=== PATIENT | male | born 1960 | race Two or more races ===

== ENCOUNTER 2017-09-07 13:21 | Emergency (ER) | payer SELFPAY ==
[~2017-09-07] VITALS: Ht 165.1 cm; Wt 79.4 kg
[2017-09-07] MEDS ORDERED: METFORMIN HCL500 M1 ORAL (13:42)
[2017-09-07 14:39] LABS: BASOPHILS % (AUTO) 0.9 % (0.0-2.0); EOSINOPHILS % (AUTO) 1.3 % (0.0-3.0); HEMATOCRIT 49.8 % (42.0-52.0); HEMOGLOBIN 16.8 G/DL (14.2-18.0); LYMPHOCYTES % (AUTO) 16.2 % (20.0-45.0); MEAN CORPUSCULAR VOLUME 91 FL (80-99); MONOCYTES % (AUTO) 8.2 % (1.0-10.0); NEUTROPHILS % (AUTO) 73.4 % (45.0-75.0); PLATELET COUNT 206 K/UL (150-450); RED BLOOD COUNT 5.49 M/UL (4.70-6.10); RED CELL DISTRIBUTION WIDTH 10.9 % (11.6-14.8)
[2017-09-07 14:44] LABS: APPEARANCE,URINE CLEAR; BILIRUBIN, URINE NEGATIVE (NEGATIVE); COLOR,URINE PALE YELLOW; GLUCOSE, URINE (UA) 4+ (NEGATIVE); KETONES,URINE NEGATIVE (NEGATIVE); LEUKOCYTE ESTERASE ,URINE 2+ (NEGATIVE); NITRITE,URINE NEGATIVE (NEGATIVE); PH,URINE 5 (4.5-8.0); PROTEIN,URINE NEGATIVE (NEGATIVE); UROBILINOGEN,URINE NORMAL MG/DL (0.0-1.0)
[2017-09-07 14:59] LABS: ANION GAP 10 mmol/L (5-15); BLOOD UREA NITROGEN 15 mg/dL (7-18); CALCIUM 8.5 MG/DL (8.5-10.1); CARBON DIOXIDE 28 MMOL/L (21-32); CHLORIDE 99 MMOL/L (98-107); SODIUM 136 MMOL/L (136-145)
[2017-09-07 15:04] LABS: ALANINE AMINOTRANSFERASE 26 U/L (12-78); ALBUMIN 3.9 G/DL (3.4-5.0); ALBUMIN/GLOBULIN RATIO 0.8 (1.0-2.7); ALKALINE PHOSPHATASE 99 U/L (46-116); ASPARTATE AMINO TRANSFERASE 16 U/L (15-37); BILIRUBIN,TOTAL 0.7 MG/DL (0.2-1.0)
[2017-09-07 16:04] VITALS: BP 171/91
[2017-09-07] MEDS ORDERED: Piperacillin/Tazobactam 3.375 GM in NS 55 ML IVPB ONE (16:15)
[2017-09-07] MEDS ORDERED: Zosyn 3.375gm inj ONE (16:20)
[2017-09-07] MEDS ORDERED: Morphine Sulfate 4mg/ml Inj IVP ONE (16:30)
[2017-09-07] MEDS ORDERED: Lidocaine 1% 10mg/ml/Epi 0.005mg/ml 30ml vial INJ ONE (18:15)
[2017-09-07] MEDS ORDERED: KEFLEX500 MG ORAL (19:04)
[2017-09-07] MEDS ORDERED: BACTRIM DS TAB1 EAC1 ORAL (19:04)
[2017-09-07] MEDS ORDERED: NORCO 5-325 TA1 EACH ORAL (19:04)
--- NOTE | 2017-09-07 19:11 | Consultation ---
History of Present Illness General Date patient seen: Sep 07, 2017 Chief Complaint: General Complaint Reason for Consultation: perirectal abscess Present Illness HPI 57M with pmhx of DM/dyslipidemia presented with 2-3 day history of perirectal pain. States he was well until noted small discomfort around right perirectal area. over the subsequent days worsened. went to PCP today who evaluated patient and recommended he come to ED. subjective fevers for 1-2 days. no drainage. otherwise well. no n/v. BM's normal. in ED had CT which demonstrated 2x2 cm perirectal abscess. surgery called to evaluate. Allergies: Coded Allergies: No Known Allergies (Unverified , 09/07/17) Medication History Scheduled Cephalexin* (Keflex*), 500 MG ORAL Q6H Metformin Hcl* (Metformin Hcl*), 500 MG ORAL DAILY, (Reported) Trimethoprim/Sulfamethoxazole 160/800* (Bactrim Ds Tablet*), 1 TAB ORAL Q12H Scheduled PRN Hydrocodone Bit/Acetaminophen 5-325* ([place] 5-325*), 1 TAB ORAL Q6H PRN for For Pain Patient History History Provided By: Patient Healthcare decision maker Resuscitation status Advanced Directive on File Past Medical/Surgical History Past Medical/Surgical History: (1) Perirectal abscess Review of Systems Constitutional: Denies: no symptoms, see HPI, chills, sweats, fever, malaise, weakness, other Eye: Denies: no symptoms, see HPI, eye pain, blurred vision, tearing, double vision, nose pain, nose congestion, acuity changes, discharge, other ENT: Denies: no symptoms, see HPI, ear pain, ear discharge, nose pain, nose congestion, throat pain, throat swelling, mouth pain, hearing loss, nasal discharge, other Respiratory: Denies: no symptoms, see HPI, cough, orthopnea, shortness of breath, stridor, wheezing, LEON, sputum, other Cardiovascular: Denies: no symptoms, see HPI, chest pain, edema, palpitations, syncope, PND, other Gastrointestinal: Denies: no symptoms, see HPI, abdominal pain, constipation, diarrhea, nausea, vomiting, melena, hematemesis, other Genitourinary: Reports: other - perirectal pain , Denies: no symptoms, see HPI , discharge, dysuria, frequency, hematuria, pain, retention, incontinence, urgency, vag bleed/dc Musculoskeletal: Denies: no symptoms, see HPI, back pain, gout, joint pain, joint swelling, muscle pain, muscle stiffness, other Skin: Denies: no symptoms, see HPI, rash, change in color, change in hair/nails , dryness, lesions, other Psychiatric: Denies: no symptoms, see HPI, prior hx, anxiety, depressed feelings, emotional problems, SI, HI, hallucinations, other Neurological: Denies: no symptoms, see HPI, headache, numbness, paresthesia, seizure, tingling, tremors, focal weakness, syncope, dizziness, other Endocrine: Denies: no symptoms, see HPI, excessive sweating, flushing, intolerance to temperature, increased thirst, increased urine, unexplained weight loss, other Hematologic/Lymphatic: Denies: no symptoms, see HPI, anemia, blood clots, easy bleeding, easy bruising, swollen glands, diathesis, other All Other Systems: negative except mentioned in HPI Physical Exam General Appearance: WD/WN, no apparent distress, alert Lines, tubes and drains: peripheral HEENT: normocephalic, mucous membranes moist, PERRL Neck: supple, normal inspection Respiratory/Chest: lungs clear, normal breath sounds, no respiratory distress, no accessory muscle use Cardiovascular/Chest: normal peripheral pulses, normal rate Abdomen: normal bowel sounds, non tender, soft, no organomegaly, no mass Genitourinary/Rectal: other - firm right perirectal abscess 1cm from sphincter with induration, erythema, edema, tenderness. no drainage, no tract. LIO nml. Extremities: normal inspection Skin Exam: normal pigmentation Neurologic: alert, oriented x 3 Last 24 Hour Vital Signs Date Time Temp Pulse Resp B/P (MAP) Pulse Ox O2 Delivery O2 Flow Rate FiO2 09/07/17 16:04 99.8 108 18 171/91 97 Room Air 09/07/17 13:38 99.0 99 17 155/97 98 Room Air Laboratory Tests Test 09/07/17 14:18 White Blood Count 12.0 K/UL (4.8-10.8) H Red Blood Count 5.49 M/UL (4.70-6.10) Hemoglobin 16.8 G/DL (14.2-18.0) Hematocrit 49.8 % (42.0-52.0) Mean Corpuscular Volume 91 FL (80-99) Mean Corpuscular Hemoglobin 30.6 PG (27.0-31.0) Mean Corpuscular Hemoglobin Concent 33.7 G/DL (32.0-36.0) Red Cell Distribution Width 10.9 % (11.6-14.8) L Platelet Count 206 K/UL (150-450) Mean Platelet Volume 10.5 FL (6.5-10.1) H Neutrophils (%) (Auto) 73.4 % (45.0-75.0) Lymphocytes (%) (Auto) 16.2 % (20.0-45.0) L Monocytes (%) (Auto) 8.2 % (1.0-10.0) Eosinophils (%) (Auto) 1.3 % (0.0-3.0) Basophils (%) (Auto) 0.9 % (0.0-2.0) Urine Color Pale yellow Urine Appearance Clear Urine pH 5 (4.5-8.0) Urine Specific [place] 1.015 (1.005-1.035) Urine Protein Negative (NEGATIVE) Urine Glucose (UA) 4+ (NEGATIVE) H Urine Ketones Negative (NEGATIVE) Urine Occult Blood Negative (NEGATIVE) Urine Nitrite Negative (NEGATIVE) Urine Bilirubin Negative (NEGATIVE) Urine Urobilinogen Normal MG/DL (0.0-1.0) Urine Leukocyte Esterase 2+ (NEGATIVE) H Urine RBC 0-2 /HPF (0 - 0) H Urine WBC 2-4 /HPF (0 - 0) Urine Squamous Epithelial Cells Occasional /LPF Urine Bacteria Occasional /HPF (NONE) Sodium Level 136 MMOL/L (136-145) Potassium Level 4.0 MMOL/L (3.5-5.1) Chloride Level 99 MMOL/L (98-107) Carbon Dioxide Level 28 MMOL/L (21-32) Anion Gap 10 mmol/L (5-15) Blood Urea Nitrogen 15 mg/dL (7-18) Creatinine 1.0 MG/DL (0.55-1.30) Estimat Glomerular Filtration Rate > 60 mL/min (>60) Glucose Level 276 MG/DL (74-106) H Calcium Level 8.5 MG/DL (8.5-10.1) Magnesium Level 2.1 MG/DL (1.8-2.4) Total Bilirubin 0.7 MG/DL (0.2-1.0) Aspartate Amino Transf (AST/SGOT) 16 U/L (15-37) Alanine Aminotransferase (ALT/SGPT) 26 U/L (12-78) Alkaline Phosphatase 99 U/L (46-116) Total Protein 8.7 G/DL (6.4-8.2) H Albumin 3.9 G/DL (3.4-5.0) Globulin 4.8 g/dL Albumin/Globulin Ratio 0.8 (1.0-2.7) L Acetone Level Negative (NEGATIVE) Height (Feet): 5 Height (Inches): 5.00 Weight (Pounds): 175 Assessment/Plan Problem List: (1) Perirectal abscess Assessment & Plan: 57M with perirectal abscess. low grade fevers, HD stable, leukocytosis of 12k, elevated glucose, CT scan with 2x2x1.5 abscess. -recommend I&D which will be done at bedside today -packing and dressings until healed -can d/c after I&D with oral abx and pain meds -follow up with me this Saturday in office for wound check. office info given to patient. ICD Codes: K61.1 - Rectal abscess SNOMED: [id number] Status: stable MaximilianopeePatrick Sep 07, 2017 19:11
--- NOTE | 2017-09-07 19:16 | Operative Note - PDOC ---
Operative Note Operative Note Date of Operation/Procedure: Sep 07, 2017 Pre-op Diagnosis: right perirectal abscess 2cm x 2cm x 1.5cm Procedure: incision and drainage of right perirectal abscess Operative Findings: consistent w/pre-op dx studies Surgeon: bryanna Anesthesia: local - 1%lido with epi Specimen: yes - culture Complications: none Condition: stable Fluids: n/a Estimated Blood Loss: minimal Drains: none Packing: wet to dry gauze packing with dressings Implant(s) used?: No Indications for Procedure 57M perirectal abscess. I&D indicated. see consult note. risks, benefits, and alternatives discussed in detail. consent obtained. Description of Procedure patient made comfortable at bedside. perirectal area prepped and draped in standard surgical fashion. 1%lido with epi used for local anesthetic; approx 15 -20cc. 2cm incision made distal to anus over area of induration. abscess cavity located with blunt dissection and 5-10cc pus evacuated. sample sent for culture. wound irrigated with copious sterile saline. good hemostasis noted. wound packed with gauze and dressings applied. patient tolerated procedure well. to change packing and dressings BID and prn after each BM and shower. patient states that will be able to assist. Rx as written. follow up this Wed for wound check. Patrick Corona Sep 07, 2017 19:16
[2017-09-07 19:35] VITALS: BP 171/91
--- NOTE | 2017-09-07 21:29 | Emergency Room Report ---
History of Present Illness General Chief Complaint: General Complaint Source: Patient Present Illness HPI The patient is a 57-year-old male with a history of diabetes presenting for multiple complaints including high blood sugar and possible perianal abscess. He was seen by his primary doctor today who told him to come to the emergency department. He states that he usually takes metformin once a day and his blood sugar has been controlled well. Blood sugar taken at the primary care office was 412. He states he has been taking his medication as directed. He is also complaining of pain around the anus described as a 7/10 dull ache. Worse with sitting down. This has been ongoing for 3 days. He also admits to subjective fever and chills. He denies any discharge from the area. He denies any other symptoms including N, V, CP, SOB, rash, diarrhea, constipation, dysuria, abd pain, back pain, dizziness, SOB Allergies: Coded Allergies: No Known Allergies (Unverified , 09/07/17) Patient History Past Medical History: see triage record, DM Pertinent Family History: none Reviewed Nursing Documentation: PMH: Agreed, PSxH: Agreed Nursing Documentation-PMH Hx Diabetes: Yes - DM2 Review of Systems All Other Systems: negative except mentioned in HPI Physical Exam Vital Signs Date Time Temp Pulse Resp B/P (MAP) Pulse Ox O2 Delivery O2 Flow Rate FiO2 09/07/17 13:38 99.0 99 17 155/97 98 Room Air Sp02 EP Interpretation: reviewed, normal General Appearance: no apparent distress, alert, GCS 15, non-toxic Head: normocephalic, atraumatic Eyes: bilateral eye normal inspection, bilateral eye PERRL ENT: hearing grossly normal, normal pharynx, no angioedema, normal voice Gastrointestinal: normal bowel sounds, non tender, soft, non-distended, no guarding, no rebound Genitourinary: normal inspection, no CVA tenderness Musculoskeletal: back normal, gait/station normal, normal range of motion, non- tender Neurologic: alert, oriented x3, responsive, motor strength/tone normal, sensory intact, speech normal Psychiatric: judgement/insight normal, memory normal, mood/affect normal, no suicidal/homicidal ideation Skin: rash - Erythema perianally with TTP Medical Decision Making PA Attestation Dr. Antonio is my supervising physician. Patient management was discussed with my supervising physician Diagnostic Impression: Primary Impression: Abscess ER Course The patient is a 57-year-old male with a history of diabetes presenting for multiple complaints including high blood sugar and possible perianal abscess. Differential diagnoses considered but not limited to: denisa rectal abscess, cellulitis, hemorrhoid Differential diagnosis considered: DKA, HONK, Hyperglycemia, Dehydration PE: Temperature elevated but afebrile. NAD RRR Lungs CTA bilat Abdomen soft and nontender Perianally, there is erythema with tenderness to palpation. No hemorrhoid externally. No discharge. No bleeding Labs: There is leukocytosis with hyperglycemia. Otherwise unremarkable CT: CT abdomen and pelvis with IV contrast shows a 2 x [address] Corona was consulted and arrived to the ER shortly. He evaluated the patient and performed a procedure at bedside. Please see his note for this patient. The patient states that pain has significantly decreased after the procedure and he is feeling much better. he was given a dose of IV antibiotics in the emergency department and will be discharged home with antibiotics. He has spoken with Dr. Corona and will followup with him ER precautions are given Laboratory Tests Test 09/07/17 14:18 White Blood Count 12.0 K/UL (4.8-10.8) H Red Blood Count 5.49 M/UL (4.70-6.10) Hemoglobin 16.8 G/DL (14.2-18.0) Hematocrit 49.8 % (42.0-52.0) Mean Corpuscular Volume 91 FL (80-99) Mean Corpuscular Hemoglobin 30.6 PG (27.0-31.0) Mean Corpuscular Hemoglobin Concent 33.7 G/DL (32.0-36.0) Red Cell Distribution Width 10.9 % (11.6-14.8) L Platelet Count 206 K/UL (150-450) Mean Platelet Volume 10.5 FL (6.5-10.1) H Neutrophils (%) (Auto) 73.4 % (45.0-75.0) Lymphocytes (%) (Auto) 16.2 % (20.0-45.0) L Monocytes (%) (Auto) 8.2 % (1.0-10.0) Eosinophils (%) (Auto) 1.3 % (0.0-3.0) Basophils (%) (Auto) 0.9 % (0.0-2.0) Urine Color Pale yellow Urine Appearance Clear Urine pH 5 (4.5-8.0) Urine Specific [place] 1.015 (1.005-1.035) Urine Protein Negative (NEGATIVE) Urine Glucose (UA) 4+ (NEGATIVE) H Urine Ketones Negative (NEGATIVE) Urine Occult Blood Negative (NEGATIVE) Urine Nitrite Negative (NEGATIVE) Urine Bilirubin Negative (NEGATIVE) Urine Urobilinogen Normal MG/DL (0.0-1.0) Urine Leukocyte Esterase 2+ (NEGATIVE) H Urine RBC 0-2 /HPF (0 - 0) H Urine WBC 2-4 /HPF (0 - 0) Urine Squamous Epithelial Cells Occasional /LPF Urine Bacteria Occasional /HPF (NONE) Sodium Level 136 MMOL/L (136-145) Potassium Level 4.0 MMOL/L (3.5-5.1) Chloride Level 99 MMOL/L (98-107) Carbon Dioxide Level 28 MMOL/L (21-32) Anion Gap 10 mmol/L (5-15) Blood Urea Nitrogen 15 mg/dL (7-18) Creatinine 1.0 MG/DL (0.55-1.30) Estimate Glomerular Filtration Rate > 60 mL/min (>60) Glucose Level 276 MG/DL (74-106) H Calcium Level 8.5 MG/DL (8.5-10.1) Magnesium Level 2.1 MG/DL (1.8-2.4) Total Bilirubin 0.7 MG/DL (0.2-1.0) Aspartate Amino Transferase (AST) 16 U/L (15-37) Alanine Aminotransferase (ALT) 26 U/L (12-78) Alkaline Phosphatase 99 U/L (46-116) Total Protein 8.7 G/DL (6.4-8.2) H Albumin 3.9 G/DL (3.4-5.0) Globulin 4.8 g/dL Albumin/Globulin Ratio 0.8 (1.0-2.7) L Acetone Level Negative (NEGATIVE) Lab Results Impression There is leukocytosis with hyperglycemia. Otherwise unremarkable EKG Diagnostic Results EP Interpretation: Sinus tach Rate: tachycardiac - 108 Rhythm: NSR ST Segments: no acute changes PA Scribe Text EKG was reviewed and read with my supervising physician. No acute ST segment changes are seen. Chest X-Ray Diagnostic Results Chest X-Ray Diagnostic Results : Chest X-Ray Ordered: Yes # of Views/Limited/Complete: 1 View Indication: Other - pre-op EP Interpretation: Yes PA Xray: Interpretation reviewed, by supervising MD, and agrees with findings. Interpretation: no consolidation, no effusion, no pneumothorax, no acute cardiopulmonary disease Impression: No acute disease Electronically Signed by: Andreas Stallworth PA-C CT/MRI/US Diagnostic Results CT/MRI/US Diagnostic Results : Imaging Test Ordered: CT abd/pelvis Impression 2x2cm perianal abscess Last Vital Signs Date Time Temp Pulse Resp B/P (MAP) Pulse Ox O2 Delivery O2 Flow Rate FiO2 09/07/17 19:35 99.8 108 18 171/91 97 Room Air Status: improved Disposition: HOME, SELF-CARE Condition: Stable Scripts Hydrocodone Bit/Acetaminophen 5-325* (NORCO 5-325*) 1 Each Tablet 1 TAB ORAL Q6H Y for For Pain, #10 TAB 0 Refills Prov: Jaxon Antonio 09/07/17 Trimethoprim/Sulfamethoxazole 160/800* (BACTRIM DS TABLET*) 1 Each Tablet 1 TAB ORAL Q12H, #14 TAB 0 Refills Prov: Jaxon Antonio 09/07/17 Cephalexin* (KEFLEX*) 500 Mg Capsule 500 MG ORAL Q6H, #28 CAP 0 Refills Prov: Jaxon Antonio 09/07/17 Referrals: NON PHYSICIAN (PCP) Patient Instructions: ANDREAS Dodd Sep 07, 2017 21:29
--- NOTE | 2017-09-08 11:09 | Diagnostic Imaging Report ---
Indication: Pain Technique: XRAY Chest 1v Comparison: None Findings: Heart size and mediastinal contours are within normal limits given technique. There is no focal consolidation, pneumothorax or pleural effusion. Osseous structures demonstrate no acute abnormality. Impression: No radiographic evidence of acute cardiopulmonary disease.
--- NOTE | 2017-09-08 11:18 | Diagnostic Imaging Report ---
Indication: Abdominal pain Technique: CT of the abdomen and pelvis utilizing automated exposure control with intravenous contrast. Venous scanning performed. CT dose: Total DLP 603.85 mGycm; CTDI vol 11.96 mGy Comparison: None Findings: Image lower lungs are grossly clear. Heart size within normal limits. There is no pericardial effusion. Liver is mildly enlarged, measuring 18 cm in craniocaudal length. There is diffusely increased hepatic attenuation relative to the spleen, findings suggestive of hepatic steatosis. No focal liver lesion is appreciated on this single phase study. Hepatic veins and portal veins appear patent. Gallbladder is unremarkable in appearance. Spleen, adrenal glands and pancreas are unremarkable in appearance. There is a punctate nonobstructing stone in the upper pole of the right kidney (series 3 image #27) there is no evidence of hydronephrosis bilaterally. Very minimal nonspecific bilateral perinephric stranding is seen. The bladder is mildly distended. Prostate is enlarged and heterogeneous, particularly the central gland. There is no bowel obstruction. No free intraperitoneal fluid or air. Appendix is normal. There is a peripherally enhancing fluid collection in the right perianal area that measures grossly 2.4 x 1.5 x 2.2 cm (series 3 image #84). This may represent perianal abscess, thrombosed hemorrhage or mass. Correlation with physical exam recommended. Abdominal aorta is normal in caliber. No acute osseous abnormality is seen. Impression: 2.4 cm peripherally enhancing right perianal collection likely representing a small abscess. Differential considerations include thrombosed hemorrhage or mass. Correlation with physical exam recommended. Mild hepatomegaly and probable hepatic steatosis. Non-obstructing subcentimeter right renal stone. Prostatomegaly This corresponds with the statrad preliminary report. The CT scanner at [facility] is accredited by the [employer] and the scans are performed using protocols designed to limit radiation exposure to as low as reasonably achievable to attain images of sufficient resolution adequate for diagnostic evaluation.
--- NOTE | 2017-09-08 14:52 | Cardiology Report ---
APPROVED REPORT EKG Measurement Heart [id number] Sinus tachycardia Otherwise normal ECG
== END 2017-09-07 19:35 | disposition home or self-care (01) ==
LOC: EMR 14:50 → 4E 16:12 → UNDOADMIN 16:12 → EDBEDREQ 16:58 → 4E 18:05 → EMR 19:35
DX: K61.0 Anal abscess (principal); E11.65 Type 2 diabetes mellitus with hyperglycemia; D72.829 Elevated white blood cell count, unspecified; R16.0 Hepatomegaly, not elsewhere classified; N20.0 Calculus of kidney
CPT/HCPCS: 10060; 36415; 71010; 74177; 80053; 81003; 82009; 82962; 83735; 85025; 93005; 96361; 96365; 96372; 96375; 99284; J2270; J2543; Q9967